=== PATIENT | female | born 2000 | race Two or more races ===

== ENCOUNTER 2019-02-22 22:07 | Emergency (ER) | payer MEDICAID, OTHER ==
[~2019-02-22] VITALS: Ht 160 cm; Wt 52.2 kg
[2019-02-22 22:25] VITALS: BP 119/79
== END 2019-02-23 04:00 | disposition left against medical advice (07) ==
LOC: EDBD 22:07 → ER 22:11
DX: R51 Headache (principal); V43.52XA Car driver injured in collision with other type car in traffic accident, initial encounter; Y93.89 Activity, other specified; Y92.410 Unspecified street and highway as the place of occurrence of the external cause; Y99.8 Other external cause status
CPT/HCPCS: 70140